=== PATIENT | male | born 1990 | race African-American/Black ===

== ENCOUNTER 2021-08-07 16:28 | Emergency (ER) | payer OTHER, SELFPAY ==
[2021-08-07 16:30] VITALS: BP 117/77; PULSE 95; RESP 18; TEMP 36.9; O2SAT 99
--- NOTE | 2021-08-07 18:10 | PC.NURSE ---
called pt to go back to a room, no answer
== END 2021-08-08 05:16 | disposition left against medical advice (07) ==
LOC: ANHED 18:19
DX: R10.9 Unspecified abdominal pain (principal)
CPT/HCPCS: 99199